=== PATIENT | male | born 1975 | race Caucasian/White ===

== ENCOUNTER 2018-05-21 06:44 | Emergency (ER) | payer SELFPAY ==
[2018-05-21 06:53] VITALS: BP 156/96; PULSE 102; RESP 26; TEMP 36.4; O2SAT 100; BMI 30.4
--- NOTE | 2018-05-21 07:08 | DI.RAD.S_ITS ---
PROCEDURE: XR CHEST 2V INDICATIONS: cough SOB TECHNIQUE: 2 views of the chest were acquired. COMPARISON: [facility], CR, RIBS UNILATERAL WITH PA CXR, 10/11/2016, 9:27. FINDINGS: Surgical changes and devices: None. Lungs and pleura: No pleural effusions or pneumothorax. Lungs are clear. Mediastinum: Mediastinal contours are normal. Heart size is normal. Bones and chest wall: No suspicious bony abnormalities. Lumbar spine convex-right curvature, multilevel degenerative disc disease and accentuated lower thoracic spine kyphosis noted. Soft tissues appear unremarkable. IMPRESSION: No acute cardiopulmonary disease process. Dictated by: Kasandra Perez MD, PhD on 05/21/2018 at 7:57 Approved by: Kasandra Perez MD, PhD on 05/21/2018 at 7:59
--- NOTE | 2018-05-21 07:23 | ED_ITS ---
HPI - URI/Sore Throat General Chief Complaint: Upper Respiratory Symptoms Stated Complaint: shortness of breath Time Seen by Provider: 05/21/18 06:46 Source: patient Mode of arrival: ambulatory Limitations: no limitations History of Present Illness HPI Narrative: Patient is a 42-year-old male who presents with difficulty breathing. He says he woke up this morning and feels though he can't take a deep breath. He feels like thing may be just not quite right. He has no chest pain no heart palpitations no dizziness. He does admit to vaping daily. He denies any fever or productive cough. He states that yesterday he did drink more than normal but he denies any nausea vomiting abdominal pain or headache. Related Data Home Medications Medication Instructions Recorded Confirmed ibuprofen [Advil] 200 mg PO Q4HP PRN #0 05/19/16 multivitamin [Multiple Vitamins] 1 tab PO QDAY #0 05/19/16 Previous Rx's Medication Instructions Recorded cephalexin [Keflex] 500 mg PO QID #28 cap 05/19/16 diazepam [Valium] 10 mg PO TIDP PRN #10 tab 10/11/16 meloxicam [Mobic] 7.5 mg PO BIDCC PRN #20 tab 10/11/16 albuterol sulfate 1 puff INHALATION Q4-6H PRN #8 gram 05/21/18 Allergies Allergy/AdvReac Type Severity Reaction Status Date / Time No Known Allergies Allergy Uncoded 09/04/17 12:40 Review of Systems Review of Systems All systems reviewed & are unremarkable except as noted in HPI and below Constitutional Denies chills, Denies fever(s), Denies lethargy and Denies weakness ENT Ears, Nose, Mouth, and Throat: Denies change in voice, Denies vertigo, Denies dizziness, Denies neck pain and Denies sore throat Cardiovascular Denies chest pain, Denies irregular heart rhythm, Denies lightheadedness, Denies palpitations and Denies orthopnea Respiratory Reports as per HPI Gastrointestinal Gastrointestinal: Denies abdominal pain, Denies change in bowel habits, Denies diarrhea, Denies nausea and Denies vomiting Genitourinary Denies hematuria, Denies flank pain, Denies urinary incontinence and Denies urinary urgency Musculoskeletal Denies neck pain Integumentary/Breasts Denies pruritus, Denies erythema, Denies rash and Denies wounds Neurologic Denies confusion, Denies vertigo, Denies dizziness and Denies weakness Psychiatric Denies confusion Endocrine Denies palpitations PFSH Medical History Healthy adult (Acute) Social History Smoking Status: Current every day smoker alcohol intake: current Exam Initial Vital Signs Initial Vital Signs: Vital Signs Temperature 97.6 F 05/21/18 06:53 Pulse Rate 102 H 05/21/18 06:53 Respiratory Rate 26 H 05/21/18 06:53 Blood Pressure 156/96 H 05/21/18 06:53 Pulse Oximetry 100 05/21/18 06:53 GENERAL: Well-appearing, well-nourished and in no acute distress. HEENT: Head atraumatic,EOMI, pupils reactive, face symmetric, moist mucous membranes CARDIOVASCULAR: Regular rate and rhythm without murmurs, rubs or gallops. RESPIRATORY: Breath sounds equal bilaterally, no wheezes rales or rhonchi. ABDOMEN: Soft, nontender. Normoactive bowel sounds all 4 quadrants. No guarding or rebound. EXTREMITIES: Normal range of motion, no clubbing or edema. Neurovascularly intact NEUROLOGICAL: Alert and oriented x4.Normal gait and speech. Cranial nerves II through XII grossly intact. SKIN: Warm, dry, no laceration, no petechiae, no rashes or lesions. Course Orders Ordered: ED Orders 05/21/18 07:08 XR chest 2V Stat Discontinued Medications Albuterol/Ipratropium (Duoneb) 3 ml INH NOW ONE Stop: 05/21/18 07:09 Last Admin: 05/21/18 07:27 Dose: 3 ml Vital Signs - 8 hr 05/21/18 06:53 05/21/18 08:10 Temperature 97.6 F Pulse Rate 102 H 96 H Respiratory Rate 26 H 20 Blood Pressure 156/96 H 140/96 H Pulse Oximetry 100 98 MDM - URI/Sore Throat Imaging Data Chest x-ray: Radiologist's impression: PROCEDURE: XR CHEST 2V INDICATIONS: cough SOB TECHNIQUE: 2 views of the chest were acquired. COMPARISON: [facility], CR, RIBS UNILATERAL WITH PA CXR, 10/11/2016, 9:27. FINDINGS: Surgical changes and devices: None. Lungs and pleura: No pleural effusions or pneumothorax. Lungs are clear. Mediastinum: Mediastinal contours are normal. Heart size is normal. Bones and chest wall: No suspicious bony abnormalities. Lumbar spine convex- right curvature, multilevel degenerative disc disease and accentuated lower thoracic spine kyphosis noted. Soft tissues appear unremarkable. IMPRESSION: No acute cardiopulmonary disease process. Dictated by: Kasandra Perez MD, PhD on 05/21/2018 at 7:57 ECG Data Attestation: I personally reviewed and interpreted this ECG as follows: Prior ECG tracings: available for review Interpretation: Normal sinus rhythm rate [address] changes no T-wave inversions appear interval 163 similar to previous EKG. MDM Narrative Medical decision making narrative: Patient overall is feeling better. Sounds as though he got a little anxious as well but he feels like he can't breathe take a deep breath and feels ready and able to go home. Discharge Plan Departure Patient Disposition: Home Clinical Impression: Reactive airway disease that is not asthma Discharge Date/Time: 05/21/18 08:10 Interventions: ED Discharge Assessment Last Done: 05/21/18 08:10 Instructions: DI for Reactive Airway Disease-Adult Activity Restrictions/Additional Instructions: *You have been diagnosed with reactive airway *What to do: Gaping can also be harmful to her lungs and cause airway spasm *Continue to take medications as directed Albuterol 2 puffs every 4 hr if needed for shortness of breath or chest tightness *Follow up with your primary care provider in 2-3 days *Return to ER if you should have increasing chest tightness, shortness of breath , heart palpitations or any new, worsening or concerning symptoms Prescriptions: New albuterol sulfate 90 mcg/actuation HFA aerosol inhaler 1 puff INHALATION Q4-6H PRN (Reason: shortness of breath) Qty: 8 RF: 0 No Action multivitamin [Multiple Vitamins] 1 EACH tablet 1 tab PO QDAY Qty: 0 RF: 0 ibuprofen [Advil] 200 MG tablet 200 mg PO Q4HP PRNQty: 0 RF: 0 cephalexin [Keflex] 500 MG capsule 500 mg PO QID Qty: 28 RF: 0 meloxicam [Mobic] 7.5 MG tablet 7.5 mg PO BIDCC PRNQty: 20 RF: 0 diazepam [Valium] 10 MG tablet 10 mg PO TIDP PRNQty: 10 RF: 0
[2018-05-21] MEDS: ALBUTEROL/IPRATROPIUM 3 ML AMPUL INH (07:27)
[2018-05-21 08:10] VITALS: BP 140/96; PULSE 96; RESP 20; O2SAT 98
== END 2018-05-21 08:10 | disposition home or self-care (01) ==
PROVIDERS: Emergency Provider Emergency Medicine
DX: R09.89 Other specified symptoms and signs involving the circulatory and respiratory systems (principal)
CPT/HCPCS: 71046; 93005; 94640; 99283; 99284

== ENCOUNTER 2021-05-09 11:17 | Emergency (ER) | payer SELFPAY ==
[2021-05-09 11:30] VITALS: BP 173/103; PULSE 124; RESP 15; TEMP 36.8; O2SAT 98; BMI 33.5
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
[2021-05-09] MEDS: TET,DIPH,PERTUSS(ACELL),VAC/PF 0.5 ML SYRINGE IM (11:48)
== END 2021-05-09 13:40 | disposition home or self-care (01) ==
PROVIDERS: Emergency Provider Emergency Medicine
DX: Z02.89 Encounter for other administrative examinations (principal); R45.851 Suicidal ideations; F32.A Depression, unspecified; S61.412A Laceration without foreign body of left hand, initial encounter; Z23 Encounter for immunization; X58.XXXA Exposure to other specified factors, initial encounter
CPT/HCPCS: 90471; 99283; 90715